=== PATIENT | female | born 1980 ===

== ENCOUNTER 2016-05-10 10:01 | Outpatient (CLI) | payer BC ==
--- NOTE | 2016-05-14 10:54 | Magnetic Resonance Report ---
MRI PELVIS WITHOUTAND WITH CONTRAST: 05/10/16 CLINICAL: Pelvic pain and bleeding. COMPARISON :None. TECHNIQUE: Sagittal, coronal and axial T1 and T2 fat sat sequences plus sagittal, coronal and axial postcontrast T1 fat sequences on a 1.5 Mallory magnet. 15 cc of Multihance was injected intravenously for contrast portion of exam the consent was obtained prior to the administration of contrast. FINDINGS: An enlarged fibroid uterus measures 16.5 x 8.0 x 11.3 cm. Multiple fibroids demonstrate brisk immediate enhancement. The largest is located anterior intramural to the right of midline in the uterine body and measures 7.0 x 5.1 x 7.9 cm. The next largest is located anterior intramural in the uterine body to the left of midline and measures 5.9 x 5.0 x 5.5 cm. A submucosal fibroid in uterine fundus measures 4.7 x 3.2 cm and has a nonenhancing center. The endometrium is mildly thickened and measures 9 mm in AP thickness. The right ovary measures 2.9 x 5.2 x 5.0 cm and contains a dominant 3.2 cm cyst. The left ovary measures 6.0 x 2.7 x 2.4 cm and contains numerous small follicles. Bilateral tubular fluid-filled structures in the adnexa are consistent with hydrosalpinges. The left measures 1 cm in diameter and the right measures 1.5 cm in diameter. No free fluid. Normal urinary bladder and rectum. The bones and soft tissues are normal. IMPRESSION: 1. A 16.5 cm fibroid uterus with numerous enhancing leiomyomata. One fibroid demonstrates central degeneration. 2. Normal endometrium. 3. A 3.2 cm right ovarian cyst. 4. Both ovaries are relatively large with small follicles. 5. Bilateral hydrosalpinges.
== END 2016-05-10 10:02 | disposition home or self-care (01) ==
LOC: SPVIMAG 10:01
PROVIDERS: ATTEND Radiology Vascular & Interventional Radiology
DX: N93.9 Abnormal uterine and vaginal bleeding, unspecified (principal)
CPT/HCPCS: 72197; A9577